=== PATIENT | male | born 1995 | race Caucasian/White ===

== ENCOUNTER 2016-11-05 23:19 | Emergency (ER) | payer OTHER ==
[~2016-11-05] VITALS: Ht 177.8 cm; Wt 70.5 kg
[2016-11-05 23:26] VITALS: BP 71/41; PULSE 77; RESP 16; O2SAT 98
--- NOTE | 2016-11-05 23:40 | ED.REPORT ---
HPI-Extremity Problem Lower Date of Service Nov 05, 2016 ED Provider: Dr. Mason Wade MD A 21 year old male presents to the ED following a right big toe injury that occurred earlier this evening. Patient reports that he kicked a wall and experienced a syncopal episode immediately following the incident. He awoke shortly after the episode and believes this likely occurred because of the pain. The pain is exacerbated by bearing weight. He denies any other injuries at this time. Patient denies any numbness or weakness in his extremities. Nursing Notes Stated Complaint: RIGHT BIG TOE INJURY Chief Complaint: Laceration Nursing Notes Reviewed: Yes Allergies: Coded Allergies: No Known Allergies (Unverified , 11/05/16) General Time Seen by MD: 23:40 Chief Complaint Toe injury right 1 Hx Obtained From: Patient Arrived By: Walk-in Onset Occurred: 1 - 4 hours ago Symptom Duration: Since onset Caused by: Kicked Location: : Toe right 1 Quality: Painful Severity: Current: Moderate Severity: Maximum: Moderate Associated with: Reports: Syncope, Denies: Numb extremities, Unable to bear weight (painful) Pertinent Negative: Pt denies other symptoms Recent Healthcare: No recent doctor visit, No recent hospitalization Past Medical History Past Medical History None reported. Past Surgical History None reported. Smoking History Unknown if Ever Smoker Social History Other Social History: Good social support, Local resident Ambulatory Status Independent Review of Systems Musculoskeletal: Reports: Joint pain (right toe pain ), Joint swelling (right big toe) Neurologic: Reports: Syncope, Denies: Numbness, Weakness Complete sys rev & neg: except as marked. Physical Exam Initial Vital Signs Vital Signs (First) Date Time Temp Pulse Resp B/P Pulse Ox O2 Delivery O2 Flow Rate FiO2 11/05/16 23:26 36.4 77 16 71/41 98 Room Air Initial VS: Reviewed Head / Eyes: Atraumatic, Normocephalic, PERRL Neck: Supple, Non-tender, Full range of motion Upper Extremities: Vascular intact, Neuro intact, No swelling, No tenderness Skin: Warm, Dry, No cyanosis Neurologic: Alert, Oriented, Nonfocal Psychiatric: Mood/affect normal, Behavior normal, Normal thought content Lower Extremity / Pelvis / MS: Atraumatic, Neurologic intact, Vascular intact Ankle / Foot: Atraumatic, Neurologic intact, Vascular intact Right Great Toe: Positive: Ecchymosis present, Swelling present... (soft tissue swelling), Tenderness present... General/Constitutional: Awake, Alert, No acute distress Interpretation & Diagnostics Lab Results Interpretation Test 11/05/16 23:38 Hold Purple Top Tube Received (Received) Hold Blue Top Tube Received (Received) Hold Red Top Tube Received (Received) Hold [place] Top Tube Received (Received) Hold Carb[place]al Top Tube Received (Received) X-Ray Interpretation Xray Interpretation: IMPRESSION: Possible evulsion fracture of great right toe X-Ray Ordered: Foot right Interpretation / Wet Read by: Wet read ED physician Re-Eval/Medical Decision Re-Evaluation/Progress : Time of Eval: 01:01 Patient Status: Condition improved Re-Evaluation/Progress Note: Patient is rechecked. He is informed of his X-ray results and diagnosis. All of the patient's questions are addressed. He understands and agrees with the treatment plan. Counseled Regarding: Diagnosis, Need for follow-up, When/why to return to ED Discharge & Departure Impression: Primary Impression: Fractured great toe Encounter type: initial encounter Fracture type: closed Phalanx: unspecified phalanx Fracture alignment: nondisplaced Laterality: right Qualified Code: S92.404A - Nondisplaced unspecified fracture of right great toe , initial encounter for closed fracture Disposition: Home Discharge Condition All VS Reviewed: Yes Condition: Improved Patient Instructions: Toe Fracture (ED) Additional Instructions: Thank you for trusting us with your care this evening. Your X-ray revealed an evulsion fracture and this may cause ligamentous injury. Please see the referred bakery deliverer to schedule a follow up appointment. Keep the area monica taped until your are able to follow up. Take 1-2 [place] every 6 hours as needed for pain. This medication is a narcotic and may cause drowsiness. Please do not drink, drive or use acetaminophen while on this medication. . Please return to the ED if you begin to experience any new or worsening symptoms. Referrals: Jacquelin Mcgarry MD (PCP) Dorota Lauren DPM Scribe Attestation Portions of this note were transcribed by Beltran [place]. I, Dr. Wade personally performed the history, physical exam and medical decision-making; I reviewed and confirmed the accuracy of the information in the transcribed note. Signed by: Michelle Burnette, 11/06/16 0112. copies to: Jacquelin Mcgarry MD, Todd P DO Nov 05, 2016 23:40 MICHELEBELTRAN Nov 06, 2016 00:11
[2016-11-06] MEDS ORDERED: HYDROcodone-APAP 5-325 mg Tablet PO ONE (00:10)
[2016-11-06 00:25] VITALS: BP 105/55; PULSE 88; RESP 14; O2SAT 100
[2016-11-06] MEDS ORDERED: _HYDROcodone/APAP 5-325 mg Tablet PO PRN (01:05)
[2016-11-06 01:34] VITALS: BP 115/66; PULSE 78; RESP 16; O2SAT 98
--- NOTE | 2016-11-06 08:38 | DRSVH ---
PROCEDURE: X-RAY TOESS, TWO VIEWS INDICATIONS: right great toe trauma TECHNIQUE: 3 views of the first toe(s) acquired. COMPARISON: None. FINDINGS: Bones: Osseous density adjacent to the medial aspect of the first proximal phalangeal head with also mild adjacent soft tissue swelling. Soft tissues: No suspicious soft tissue densities. IMPRESSION: Osseous density adjacent to the first proximal phalangeal head on the medial surface. Al though findings may be related to old injury or dystrophic calcification, avulsion fracture cannot be excluded and correlation to point tenderness is recommended to exclude fracture. If indicated repea t examination could be performed in 10-14 days. Dictated by: Ford Mitchell RRA Interpreted: Lexi Euceda MD on 11/06/2016 at 8:36 Transcribed by: ALBINO on 11/06/2016 at 8:37 Approved by: Lexi Euceda MD, PhD on 11/06/2016 at 8:47
== END 2016-11-06 01:48 | disposition home or self-care (01) ==
LOC: SED 23:19
DX: S92.404A Nondisplaced unspecified fracture of right great toe, initial encounter for closed fracture (principal); R55 Syncope and collapse; W22.8XXA Striking against or struck by other objects, initial encounter; Y99.8 Other external cause status; Y93.9 Activity, unspecified; Y92.9 Unspecified place or not applicable